=== PATIENT | male | born 1940 | race Two or more races ===

== ENCOUNTER → 2017-07-18 | Outpatient (CLI) | payer MEDICARE, MEDICAID ==
[~2017-07-18] MED LIST: ATO40T PO; BISA10SU45 RE; DIG0125T PO; DOCU-94 PO; FOLI1TAB6 PO; FURO20TA PO; MOMLQ PO; PANT1INJ3 PO; POTA-167 PO; RIVA20TA PO; SODIENE26 RE; TAM04C PO; TRAM-297 PO; ZOLP10TA PO
[2017-07-18 12:52] LABS: Basophils # (auto) 0.1 uL; Eosinophils # (auto) 0.1 uL; Eosinophils % (auto) 1.4 % (0.0-7.0); Hematocrit 48.1 % (41.0-53.0); Hemoglobin 16.2 g/dL (13.5-17.5); Lymphocytes # (auto) 2.1 uL; Lymphocytes % (auto) 21.1 % (10.0-50.0); Mean Corpuscular Hemoglobin 32.7 pg (28.0-32.0); Mean Corpuscular Hgb Conc. 33.6 g/dL (32.0-36.0); Mean Corpuscular Volume 97.2 fL (80.0-100.0); Monocytes # (auto) 0.7 uL; Monocytes % (auto) 7.2 % (0.0-12.0); Neutrophils # (auto) 6.7 uL; Neutrophils % (auto) 69.3 % (37.0-80.0); Nucleated Red Blood Cells % 0.5 %; Platelet Count (auto) 174 10^3/uL (140-450); Red Blood Cells 4.94 10^6/uL (4.5-5.90); Red Cell Distribution Width 14.2 % (11.8-14.3); White Blood Cell 9.7 10^3/uL (4.4-10.8)
[2017-07-18 12:58] LABS: Albumin 4.1 g/dL (3.4-5.0); BUN/Creatinine Ratio 21.4; Bilirubin, Direct 0.2 mg/dL (0-0.2); Bilirubin, Total 0.7 mg/dL (0.2-1.0); Calcium 9.2 mg/dL (8.5-10.1); Potassium 4.4 mmol/L (3.5-5.1); Total Protein 8.7 g/dL (6.4-8.2)
== END | disposition home or self-care (01) ==
LOC: LAB 08:03
PROVIDERS: ATTEND Internal Medicine Cardiovascular Disease
DX: I10 Essential (primary) hypertension (principal); E11.9 Type 2 diabetes mellitus without complications; E78.00 Pure hypercholesterolemia, unspecified; K74.1 Hepatic sclerosis; R97.20 Elevated prostate specific antigen [PSA]; R53.81 Other malaise; E03.9 Hypothyroidism, unspecified; D64.9 Anemia, unspecified; E55.9 Vitamin D deficiency, unspecified
CPT/HCPCS: 36415; 80048; 80076; 82306; 83036; 84153; 84403; 84443; 85025

== ENCOUNTER → 2018-05-10 | Outpatient (CLI) | payer MEDICARE, MEDICAID | END | disposition home or self-care (01) | LOC: Rad HDHVI 12:40 | PROVIDERS: ATTEND Internal Medicine Cardiovascular Disease | DX: K57.30 Diverticulosis of large intestine without perforation or abscess without bleeding (principal); I11.0 Hypertensive heart disease with heart failure; I50.9 Heart failure, unspecified; I70.0 Atherosclerosis of aorta; K40.90 Unilateral inguinal hernia, without obstruction or gangrene, not specified as recurrent; Z90.49 Acquired absence of other specified parts of digestive tract | CPT/HCPCS: 74176 ==

== ENCOUNTER 2018-05-31 18:30 | Inpatient (IN) | payer MEDICARE, MEDICAID ==
[~2018-05-31] VITALS: Ht 170.2 cm; Wt 76.6 kg
[2018-05-31 20:02] LABS: Basophils # (auto) 0 uL; Basophils % (auto) 0.5 % (0.0-2.0); Eosinophils # (auto) 0.1 uL; Hematocrit 43.5 % (41.0-53.0); Hemoglobin 14.1 g/dL (13.5-17.5); Lymphocytes # (auto) 1.2 uL; Lymphocytes % (auto) 13.8 % (10.0-50.0); Mean Corpuscular Hemoglobin 30.6 pg (28.0-32.0); Mean Corpuscular Hgb Conc. 32.5 g/dL (32.0-36.0); Mean Corpuscular Volume 94.1 fL (80.0-100.0); Monocytes # (auto) 0.5 uL; Monocytes % (auto) 6.3 % (0.0-12.0); Neutrophils # (auto) 6.7 uL; Neutrophils % (auto) 78.4 % (37.0-80.0); Nucleated Red Blood Cells % 0.1 %; Platelet Count (auto) 124 10^3/uL (140-450); Red Blood Cells 4.62 10^6/uL (4.5-5.90); Red Cell Distribution Width 17.8 % (11.8-14.3); White Blood Cell 8.6 10^3/uL (4.4-10.8)
[2018-05-31 20:03] LABS: Albumin 3.6 g/dL (3.4-5.0); BUN/Creatinine Ratio 19.7; Bilirubin, Total 0.9 mg/dL (0.2-1.0); Calcium 8.8 mg/dL (8.5-10.1); Potassium 4.8 mmol/L (3.5-5.1); Total Protein 7.4 g/dL (6.4-8.2)
[2018-05-31 23:26] LABS: Urine Bacteria NONE SEEN /hpf (None Seen); Urine Blood Negative /uL (Negative); Urine Hyaline Cast FEW /lpf (0 - 2); Urine Mucus FEW (None Seen); Urine Specific Gravity 1.023 (1.001-1.035); Urine WBC <1 /hpf (0 - 3)
[2018-06-01] MEDS ORDERED: ONDANSETRON HCL 4 MG/2 ML VIAL IV PRN (07:15)
[2018-06-01] MEDS ORDERED: MORPHINE SULF INJ 2 MG/ML SYRINGE 1ML IV PRN (07:15)
[2018-06-01] MEDS ORDERED: TEMAZEPAM 15 MG CAP PO PRN (07:15)
[2018-06-01] MEDS ORDERED: NITROGLYCERIN 0.4 MG SL TAB SL PRN (07:15)
[2018-06-01] MEDS ORDERED: ACETAMINOPHEN 325 MG TAB PO PRN (07:15)
[2018-06-01] MEDS: RIVAROXABAN 10 MG TAB PO SCH (10:00)
[2018-06-01] MEDS: PANTOPRAZOLE 40 MG TAB PO SCH (10:00)
[2018-06-01] MEDS: POTASSIUM CHL 10 Meq TABLET PO SCH (10:00)
[2018-06-01] MEDS: DIGOXIN 0.125 MG TAB PO SCH (10:00)
[2018-06-01] MEDS ORDERED: ASPirin 81 mg TAB PO SCH (10:00)
[2018-06-01] MEDS ORDERED: FUROSEMIDE 40 MG TAB PO SCH (10:00)
[2018-06-01] MEDS ORDERED: ALBUTEROL SULF 2.5 MG/0.5ML(0.5%) NEB SOLN NEB PRN (13:00)
[2018-06-01] MEDS ORDERED: IPRATROPIUM BROM 0.5 MG/2.5ML INH SOL NEB PRN (13:00)
[2018-06-01 13:21] VITALS: BP 151/96
[2018-06-01 14:05] VITALS: BP 125/70
[2018-06-01 16:00] VITALS: BP 148/74
[2018-06-01] MEDS: HYDROcodone-ACET 5/325MG TAB PO PRN (16:30)
[2018-06-01] MEDS: TAMSULOSIN HYDROCHLORIDE 0.4 MG CAP PO SCH (18:07)
[2018-06-01] MEDS: FUROSEMIDE 40 MG/4 ML VIAL IV SCH (18:07)
[2018-06-01] MEDS ORDERED: LORA-622 PO (18:13)
[2018-06-01] MEDS ORDERED: FINA5TAB4 PO (18:13)
[2018-06-01] MEDS ORDERED: ESOM40CA39 PO (18:13)
[2018-06-01] MEDS ORDERED: FURO40TA PO (18:13)
[2018-06-01] MEDS ORDERED: GABA-339 PO (18:13)
[2018-06-01] MEDS ORDERED: POM (18:13)
[2018-06-01] MEDS ORDERED: CHL4PW PO (18:17)
[2018-06-01] MEDS: IPRATROPIUM BROM 0.5 MG/2.5ML INH SOL NEB SCH (18:17)
[2018-06-01] MEDS: ALBUTEROL SULF 2.5 MG/0.5ML(0.5%) NEB SOLN NEB SCH (18:17)
[2018-06-01 22:00] VITALS: BP 129/75
[2018-06-01] MEDS: ATORVASTATIN 20 MG TAB PO SCH (22:33)
[2018-06-02 05:00] VITALS: BP 141/76
[2018-06-02] MEDS: HYDROcodone-ACET 5/325MG TAB PO PRN (05:24)
[2018-06-02] MEDS: FUROSEMIDE 40 MG/4 ML VIAL IV SCH ×2 (05:27→18:41)
[2018-06-02 05:49] LABS: Basophils # (auto) 0 uL; Basophils % (auto) 0.3 % (0.0-2.0); Eosinophils # (auto) 0.1 uL; Eosinophils % (auto) 1.4 % (0.0-7.0); Hematocrit 41.1 % (41.0-53.0); Hemoglobin 13.6 g/dL (13.5-17.5); Lymphocytes % (auto) 11.9 % (10.0-50.0); Mean Corpuscular Hemoglobin 30.7 pg (28.0-32.0); Mean Corpuscular Hgb Conc. 33.1 g/dL (32.0-36.0); Mean Corpuscular Volume 92.8 fL (80.0-100.0); Monocytes # (auto) 0.5 uL; Monocytes % (auto) 6.5 % (0.0-12.0); Neutrophils # (auto) 6.5 uL; Neutrophils % (auto) 79.9 % (37.0-80.0); Nucleated Red Blood Cells % 0.1 %; Platelet Count (auto) 113 10^3/uL (140-450); Red Blood Cells 4.43 10^6/uL (4.5-5.90); Red Cell Distribution Width 17.4 % (11.8-14.3); White Blood Cell 8.1 10^3/uL (4.4-10.8)
[2018-06-02] MEDS: ALBUTEROL SULF 2.5 MG/0.5ML(0.5%) NEB SOLN NEB SCH ×4 (05:57→19:59)
[2018-06-02] MEDS: IPRATROPIUM BROM 0.5 MG/2.5ML INH SOL NEB SCH ×4 (05:57→19:58)
[2018-06-02 06:08] LABS: BUN/Creatinine Ratio 24.2; Calcium 8.9 mg/dL (8.5-10.1); Potassium 4.3 mmol/L (3.5-5.1)
[2018-06-02 09:00] VITALS: BP 128/67
[2018-06-02] MEDS: RIVAROXABAN 10 MG TAB PO SCH (10:33)
[2018-06-02] MEDS: DIGOXIN 0.125 MG TAB PO SCH (10:34)
[2018-06-02] MEDS: POTASSIUM CHL 10 Meq TABLET PO SCH (10:34)
[2018-06-02] MEDS: PANTOPRAZOLE 40 MG TAB PO SCH (10:34)
[2018-06-02] MEDS: ASPirin 81 mg TAB PO SCH (10:34)
[2018-06-02 13:05] VITALS: BP 117/69
[2018-06-02] MEDS ORDERED: MORPHINE SULFATE 4 MG/ML SYR/VIAL IV PRN (16:00)
[2018-06-02 16:45] VITALS: BP 123/69
[2018-06-02] MEDS: TAMSULOSIN HYDROCHLORIDE 0.4 MG CAP PO SCH (18:41)
[2018-06-02 22:00] VITALS: BP 123/61
[2018-06-02] MEDS: ATORVASTATIN 20 MG TAB PO SCH (22:34)
[2018-06-03] MEDS: ALBUTEROL SULF 2.5 MG/0.5ML(0.5%) NEB SOLN NEB SCH ×4 (00:24→18:39)
[2018-06-03] MEDS: IPRATROPIUM BROM 0.5 MG/2.5ML INH SOL NEB SCH ×4 (00:24→18:39)
[2018-06-03 04:58] VITALS: BP 140/80
[2018-06-03] MEDS: FUROSEMIDE 40 MG/4 ML VIAL IV SCH ×2 (06:35→18:36)
[2018-06-03 08:00] VITALS: BP 115/63
[2018-06-03] MEDS: PANTOPRAZOLE 40 MG TAB PO SCH (09:57)
[2018-06-03] MEDS: DIGOXIN 0.125 MG TAB PO SCH (09:57)
[2018-06-03] MEDS: ASPirin 81 mg TAB PO SCH (09:57)
[2018-06-03] MEDS: POTASSIUM CHL 10 Meq TABLET PO SCH (09:57)
[2018-06-03] MEDS: RIVAROXABAN 10 MG TAB PO SCH (09:58)
[2018-06-03 12:45] VITALS: BP 121/76
[2018-06-03 16:58] VITALS: BP 132/75
[2018-06-03] MEDS: TAMSULOSIN HYDROCHLORIDE 0.4 MG CAP PO SCH (18:36)
[2018-06-03 22:00] VITALS: BP 114/64
[2018-06-03] MEDS: ATORVASTATIN 20 MG TAB PO SCH (22:03)
[2018-06-03] MEDS: HYDROcodone-ACET 5/325MG TAB PO PRN (22:03)
[2018-06-04 05:00] VITALS: BP 121/56
[2018-06-04] MEDS: FUROSEMIDE 40 MG/4 ML VIAL IV SCH ×2 (06:25→17:44)
[2018-06-04] MEDS: IPRATROPIUM BROM 0.5 MG/2.5ML INH SOL NEB SCH ×4 (07:12→18:30)
[2018-06-04] MEDS: ALBUTEROL SULF 2.5 MG/0.5ML(0.5%) NEB SOLN NEB SCH ×4 (07:12→18:29)
[2018-06-04 09:00] VITALS: BP 123/75
[2018-06-04 11:08] VITALS: BP 123/75
[2018-06-04] MEDS: RIVAROXABAN 10 MG TAB PO SCH (11:33)
[2018-06-04] MEDS: PANTOPRAZOLE 40 MG TAB PO SCH (11:34)
[2018-06-04] MEDS: DIGOXIN 0.125 MG TAB PO SCH (11:34)
[2018-06-04] MEDS: POTASSIUM CHL 10 Meq TABLET PO SCH (11:35)
[2018-06-04] MEDS: ASPirin 81 mg TAB PO SCH (11:35)
[2018-06-04 13:19] VITALS: BP 120/59
[2018-06-04 17:28] VITALS: BP 107/66
[2018-06-04] MEDS: TAMSULOSIN HYDROCHLORIDE 0.4 MG CAP PO SCH (17:44)
[2018-06-04 22:00] VITALS: BP 143/78
[2018-06-04] MEDS: ATORVASTATIN 20 MG TAB PO SCH (22:28)
[2018-06-05 04:21] VITALS: BP 107/66
[2018-06-05 05:00] VITALS: BP 129/83
[2018-06-05] MEDS: FUROSEMIDE 40 MG/4 ML VIAL IV SCH ×2 (06:00→17:49)
[2018-06-05] MEDS: ALBUTEROL SULF 2.5 MG/0.5ML(0.5%) NEB SOLN NEB SCH ×3 (06:46→11:55)
[2018-06-05] MEDS: IPRATROPIUM BROM 0.5 MG/2.5ML INH SOL NEB SCH ×3 (06:46→11:55)
[2018-06-05 09:27] VITALS: BP 117/68
[2018-06-05] MEDS: POTASSIUM CHL 10 Meq TABLET PO SCH (10:50)
[2018-06-05] MEDS: PANTOPRAZOLE 40 MG TAB PO SCH (10:51)
[2018-06-05] MEDS: DIGOXIN 0.125 MG TAB PO SCH (10:51)
[2018-06-05] MEDS: RIVAROXABAN 10 MG TAB PO SCH (10:51)
[2018-06-05] MEDS: ASPirin 81 mg TAB PO SCH (10:51)
[2018-06-05 12:30] VITALS: BP 118/69
[2018-06-05 17:26] VITALS: BP 140/79
[2018-06-05] MEDS: TAMSULOSIN HYDROCHLORIDE 0.4 MG CAP PO SCH (17:49)
== END 2018-06-05 18:45 | disposition home or self-care (01) | DRG 291 ==
LOC: EDBD 18:30 → ER 18:38 → TELE 18:39 → TELE-CENTR 06-01 13:50
PROVIDERS: ADMIT Nurse Practitioner; ATTEND Internal Medicine Cardiovascular Disease
DX: I13.0 Hypertensive heart and chronic kidney disease with heart failure and stage 1 through stage 4 chronic kidney disease, or unspecified chronic kidney disease (principal); I50.43 Acute on chronic combined systolic (congestive) and diastolic (congestive) heart failure; G81.91 Hemiplegia, unspecified affecting right dominant side; R07.89 Other chest pain; N18.3 Chronic kidney disease, stage 3 (moderate); I25.5 Ischemic cardiomyopathy; M21.371 Foot drop, right foot; K58.9 Irritable bowel syndrome, unspecified; E86.0 Dehydration; I25.10 Atherosclerotic heart disease of native coronary artery without angina pectoris; I50.9 Heart failure, unspecified; I70.8 Atherosclerosis of other arteries; J44.9 Chronic obstructive pulmonary disease, unspecified; K40.90 Unilateral inguinal hernia, without obstruction or gangrene, not specified as recurrent; K42.9 Umbilical hernia without obstruction or gangrene; K57.30 Diverticulosis of large intestine without perforation or abscess without bleeding; Z95.1 Presence of aortocoronary bypass graft; Z90.49 Acquired absence of other specified parts of digestive tract; Z88.0 Allergy status to penicillin; Z79.899 Other long term (current) drug therapy; Z91.018 Allergy to other foods; Z79.01 Long term (current) use of anticoagulants; Z86.73 Personal history of transient ischemic attack (TIA), and cerebral infarction without residual deficits; Z83.3 Family history of diabetes mellitus; Z82.3 Family history of stroke; Z79.82 Long term (current) use of aspirin; Z82.49 Family history of ischemic heart disease and other diseases of the circulatory system; Z81.1 Family history of alcohol abuse and dependence; Z95.810 Presence of automatic (implantable) cardiac defibrillator
CPT/HCPCS: 36415; 71045; 80048; 80053; 80162; 81001; 83880; 84484; 85025; 87081; 93005; 93306; 94640